=== PATIENT | male | born 1955 | race African-American/Black ===

== ENCOUNTER 2016-12-03 14:13 | Outpatient (CLI) | payer OTHER ==
[2016-12-03 20:09] LABS: Cardiac Risk 4.2 (Less than 4.5)
== END 2016-12-03 14:14 | disposition home or self-care (01) ==
LOC: NAVSJIPCSP 14:13
PROVIDERS: ATTEND Internal Medicine
DX: E78.5 Hyperlipidemia, unspecified (principal)
CPT/HCPCS: 80061

== ENCOUNTER 2017-08-20 12:41 | Emergency (ER) | payer OTHER ==
[2017-08-20 13:05] LABS: #Basophils 0.1 thou/uL (0.0-0.2); #Lymphocytes 1.4 thou/uL (1.20-3.40); #Monocytes 0.5 thou/uL (0.11-0.59); #Neutrophils 4.1 thou/uL (1.40-6.50); %Basophils 1.6 % (0.0-1.0); %Eosinophils 0.8 % (0.0-10.0); %Lymphocytes 22.5 % (21.0-51.0); %Monocytes 7.4 % (0.0-10.0); %Neutrophils 67.8 % (42.0-75.0); Hemoglobin 11.1 g/dL (14.0-18.0); Mean Corpuscular HGB CONC 34.1 g/dL (32.0-36.0); Platelet Count 223 thou/uL (130-400); RBC Distribution Width 14.4 % (11.5-14.5); White Blood Cell (WBC) Count 6.1 thou/uL (4.8-10.8)
[2017-08-20 13:09] LABS: INR-International Normal Ratio 1.1; PTT 29.9 SEC (22.9-36.1)
[2017-08-20 13:19] LABS: ALT (SGPT) 13 U/L (8-55); AST (SGOT) 16 U/L (5-34); Albumin 4.4 g/dL (3.5-5.0); Alkaline Phosphatase 63 U/L (40-150); Anion Gap 15 mmol/L (10-20); BUN (Urea Nitrogen) 19 mg/dL (8.4-25.7); Calc. Creatinine Clearance 0 mL/min (70-130); Calcium 9.6 mg/dL (7.8-10.44); Carbon Dioxide 22 mmol/L (22-29); Chloride 108 mmol/L (98-107); Estimated GFR-MDRD 67; Globulin 3.6 g/dL (2.4-3.5); Glucose 114 mg/dL (70-105); Potassium 3.5 mmol/L (3.5-5.1); Sodium 141 mmol/L (136-145)
[2017-08-20 13:20] LABS: CKMB 1.5 ng/mL (0-6.6); Troponin I Less than 0.010 ng/mL (< 0.028)
--- NOTE | 2017-08-20 13:20 | CT ---
CT BRAIN: History: 62-year-old with history of weakness and jerking for several hours. Technique: Noncontrast enhanced CT images of the brain obtained. FINDINGS: Images demonstrate an area of calcification and possible hemorrhage involving the deep white matter o f both frontal lobes. There is approximately 6.7 mm of left to right shift. There is edema in the lorin p white matter extending into the left frontal lobe into the subcortical white matter tracts. I am co ncerned that this is an area of malignancy including glioblastoma. I do not see definite evidence of guillory matter wedge like density to suggest acute strokes. I do recommend pre and post contrast enhance d MRI of the brain to further characterize this. Findings discussed with Dr. Ashley at 12:58 p.m. on 08/20/2017. IMPRESSION: Deep white matter and frontal lobe areas of white matter edema with area of possible calcifications. Differential diagnosis includes neoplasia. There is some left to right shift seen. Correlate with pre and post contrast enhanced MRI images of the brain. CODE CR POS: [facility]
--- NOTE | 2017-08-20 13:39 | RAD ---
PORTABLE AP CHEST: Date: 08/20/17 HISTORY: Stroke alert. Patient has right-sided weakness and jerking which started several hours ago. COMPARISON: None available. FINDINGS: The cardiac silhouette and pulmonary vasculature are within normal limits. There is mild elevation of the right hemidiaphragm. Lungs are clear. Osseous structures are intact. IMPRESSION: No acute cardiopulmonary process. POS: [facility]
== END 2017-08-20 13:25 | disposition short-term general hospital (02) ==
LOC: NAV ERS 12:41
DX: G93.6 Cerebral edema (principal); R90.0 Intracranial space-occupying lesion found on diagnostic imaging of central nervous system; I10 Essential (primary) hypertension
CPT/HCPCS: 36415; 36416; 70450; 71045; 80053; 82553; 84484; 85025; 85610; 85730; 93005